=== PATIENT | male | born 1945 | race Caucasian/White ===

== ENCOUNTER 2024-05-10 04:55 | Emergency (ER) | payer MEDICARE ==
[~2024-05-10] VITALS: Ht 175.3 cm; Wt 72.6 kg
[2024-05-10 05:09] VITALS: BP 132/86
[2024-05-10] MEDS ORDERED: oxyCODONE 10MG/APAP 325 MG 1 COMBO TAB PO ONE (05:20)
[2024-05-10] MEDS ORDERED: NEURONTIN800 MG PO (05:24)
[2024-05-10 05:42] VITALS: BP 132/86
[2024-05-11] MEDS ORDERED: PERCOCET 5/325M1 TAB PO (01:04)
== END 2024-05-10 05:52 | disposition home or self-care (01) ==
LOC: ED 04:55
DX: G50.0 Trigeminal neuralgia (principal)